=== PATIENT | male | born 1990 | race Caucasian/White ===

== ENCOUNTER 2019-11-13 16:46 | Inpatient (IN) | payer SELFPAY ==
[2019-11-13 16:47] VITALS: BMI 20.9
[2019-11-13 16:50] VITALS: BP 118/79; PULSE 74; RESP 16; TEMP 36.4; O2SAT 97
[2019-11-13] MEDS: LORazepam 2 mg/mL INJ 1 mL (17:11)
[2019-11-13] MEDS: ziprasidone 20 mg/mL SDV (17:16)
[2019-11-13 17:55] LABS: Basophils # 0.1 10^3/uL (0.0-0.1); Basophils % 0.5 %; Eosinophils # 0.2 10^3/uL (0.0-0.8); Eosinophils % 2.3 %; Hematocrit 43.7 % (42.0-52.0); Hemoglobin 15.2 g/dL (11.7-16.6); Lymphocytes # 1.4 10^3/uL (0.8-4.8); Lymphocytes % 15.5 %; Mean Corpuscular HGB Conc 34.8 g/dL (30.0-36.0); Mean Corpuscular Hemoglobin 31.5 pg (28.0-34.0); Mean Corpuscular Volume 90.5 fL (80-94); Mean Platelet Volume 8.9 fL (7.4-10.4); Monocytes # 0.8 10^3/uL (0.2-0.9); Monocytes % 8.7 %; Neutrophils # 6.67 10^3/uL (1.8-7.7); Neutrophils % 72.7 %; Nucleated Red Blood Cells % 0 %; Platelet Count 261 10^3/cmm (130-400); Red Blood Count 4.83 10^6/uL (4.1-5.3); Red Cell Distribution Width 11.8 % (12.1-15.1); White Blood Count 9.2 10^3/uL (4.0-10.0)
[2019-11-13 18:20] LABS: Alanine Aminotransferase 21 U/L (0-41); Albumin Level 4.8 g/dL (3.5-5.2); Alkaline Phosphatase 85 IU/L (40-130); Aspartate Amino Transferase 24 U/L (0-40); Blood Urea Nitrogen 13 mg/dL (6-20); Calcium 9.2 mg/dL (8.5-10.5); Carbon Dioxide 25 mmol/L (22-29); Chloride 102 mmol/L (98-107); Globulin 3.1 g/dL (1.3-4.6); Glomerular Filtration Rate 100.5 mL/min (90-130); Glucose 90 mg/dL (65-115); Osmolality Calculated 282 mOsm/kg (285-295); Sodium 138 mmol/L (136-145); Total Bilirubin 0.7 mg/dL (0.15-1.2); Total Protein 7.9 g/dL (6.6-8.7)
[2019-11-13 18:21] LABS: Acetaminophen < 5.0 ug/mL (10-30); Alcohol Level < 10 mg/dL (0-10); Salicylate < 0.3 mg/dL (3-10)
[2019-11-13 19:01] LABS: Add Urine Microscopic? NO
[2019-11-13 19:03] LABS: Bilirubin Urine Neg (NEGATIVE); Blood Urine Neg (Negative); Glucose Urine UA Norm (Normal); Ketones Urine 1+ (Negative); Leukocyte Esterase Urine Negative (Negative); Nitrate Urine Negative (Negative); Protein Urine Neg (Negative); Specific Gravity, Urine 1.025 (1.005-1.030); Urine Appearance Clear (CLEAR); Urine Color Dark Yellow (Yellow); Urobilinogen Urine 1 mg/dL (Negative); pH Urine 5 (5-7)
[2019-11-13 19:11] LABS: Amphetamines Screen Urine Positive (Negative); Barbiturates Screen Urine Negative (Negative); Benzodiazepines Screen Urine Negative (Negative); Cocaine Screen Urine Negative (Negative); Opiate Screen Urine Negative (Negative); PCP Screen Urine Negative (Negative); THC Screen Urine Positive (Negative)
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
[2019-11-13 20:27] VITALS: BP 124/74; PULSE 78; RESP 18; O2SAT 98
[2019-11-13 21:25] VITALS: BP 109/73; PULSE 68; RESP 18; TEMP 36.6; O2SAT 99
[2019-11-14 06:00] VITALS: RESP 18
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
[2019-11-14 14:00] VITALS: BP 112/70; PULSE 56; RESP 16; TEMP 36.4; O2SAT 99
[2019-11-14] MEDS: nicotine 2 mg Gum BUCCAL (15:13)
[2019-11-14 20:13] VITALS: BP 110/62; PULSE 55; RESP 14; TEMP 36.3; O2SAT 96
--- NOTE | 2019-11-15 02:14 | PC.NURSE ---
patient refused 2100 meds
[2019-11-15 06:00] VITALS: BP 105/65; PULSE 60; RESP 14; TEMP 36.7; O2SAT 98
[2019-11-15] MEDS: ARIPiprazole 10 mg Tablet PO (08:27)
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
[2019-11-15 14:00] VITALS: BP 101/81; PULSE 75; RESP 18; TEMP 36.6; O2SAT 98
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
[2019-11-15] MEDS: hyDROXYzine 25 mg Capsule 50 MG PO (20:33)
[2019-11-15] MEDS: trazodone 50 mg Tablet PO (20:34)
[2019-11-15] MEDS: nicotine 2 mg Gum BUCCAL (20:34)
[2019-11-15 21:17] VITALS: BP 120/73; PULSE 58; RESP 16; TEMP 36.6; O2SAT 97
[2019-11-16 06:00] VITALS: BP 114/65; PULSE 54; RESP 14; TEMP 36.8; O2SAT 98
[2019-11-16] MEDS: acetaminophen 325 mg Tablet 650 MG PO (06:20)
[2019-11-16] MEDS: nicotine 2 mg Gum BUCCAL (07:55)
[2019-11-16] MEDS: ARIPiprazole 30 mg Tablet 15 MG PO (10:19)
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
[2019-11-16 14:00] VITALS: BP 98/60; PULSE 71; RESP 18; TEMP 37.1; O2SAT 94
[2019-11-16 20:36] VITALS: BP 121/78; PULSE 60; RESP 18; TEMP 36.9; O2SAT 97
[2019-11-17 06:00] VITALS: BP 131/81; PULSE 51; RESP 19; TEMP 36.4; O2SAT 98
[2019-11-17] MEDS: ARIPiprazole 30 mg Tablet 15 MG PO (08:44)
--- NOTE | 2019-11-17 11:24 | P.DS_ITS ---
Diagnoses at Discharge Discharge Diagnosis (1) Acute psychosis: Status: Acute (2) Drug-induced psychotic disorder: Status: Acute Qualifiers: Complication of substance-induced condition: with delusions Qualified Code(s): F19.950 - Other psychoactive substance use, unspecified with psychoactive substance-induced psychotic disorder with delusions (3) Methamphetamine use: Status: Acute (4) Cannabis use disorder, moderate, in controlled environment, dependence: Status: Acute Reason for Visit Reason for Visit: PSYCH EVAL Brief History: History of Present Illness Chetan Rodriguez is a 29 year old male who presented to the emergency room after breaking into his ex-'s house reportedly to protect them from some cult. He was talking strangely about a them. And how they do this and they do that. Speaking disorganized referring to strange idioms that may know since her relation to the subject matter but reporting that he was fine. No violence or aggression. But clearly psychotic. He was admitted to the neuropsychiatric unit for definitive treatment of those issues. Unfortunately he has no believes that he has psychosis. He is unaware of his disorganization. He is on 96 hour hold and Focusing on how long he would be here. Finally he was able to discuss the risks benefits and alternatives of starting Abilify and he understood and agreed to proceed as is documented in his note. He was a fairly incapable historian but note from 2016 and a previous evaluation for psychiatric concerns is included below. Per last [facility] IP eval: History of Present Illness Date of Service: August 28, 2015 Reason for Consultation: suicide attempt by overdose. HPI: The patient was admitted to the ICU following a suicide attempt by overdose. He was agitated and was sedated and intubated on admission. He states that he took an unknown amount of Flexeril pills. He has been feeling very depressed and was started on an antidepressant recently, but stopped taking the medication about a week ago. States he has been having relational problems with his of 6 months. States they have been together for 13 years.The patient endorses depressed mood most of the time, anhedonia, reduced appetite, fatigue, trouble concentrating, insomnia, feelings of guilt, frequent thoughts of , psychomotor retardation. He also feels very anxious and states he believes he needs psych treatment. He is not hearing voices and seeing things. A detailed history is inconsistent with manic/hypomanic episodes. Review of Psychiatric Systems: Negative, except as above. Allergies: Coded Allergies: No Known Allergies (Unverified , 08/27/15) Active Meds: Current Hospital Medications: Medications (Trade) Dose Ordered Sig/Charli Route PRN Reason Start Time Stop Time Status Last Admin Dose Admin Ondansetron HCl (Zofran Inj) 4 mg Q6H PRN IV FOR NAUSEA AND VOMITING 08/27/15 14:00 Enoxaparin Sodium (Lovenox) 40 mg Q24H SUBQ 08/27/15 14:00 08/27/15 15:06 Acetaminophen (Tylenol Tab) 650 mg Q4H PRN PO FOR MILD PAIN OR INCREASE TEMP 08/28/15 00:15 08/28/15 00:20 Sodium Chloride (Saline Lock Flush) 2 ml PIID IV 08/28/15 14:00 Loratadine (Claritin) 10 mg DAILY PO 08/28/15 10:00 08/28/15 10:15 Fluticasone Propionate (Flonase Nasal Bandera) 2 spray BID NA 08/28/15 10:00 08/28/15 10:15 Home Meds: Antidepressant, not known. Past Medical History Past Medical/Social History: PAST PSYCHIATRIC HISTORY:Previous psychiatric admissions:No. Previous suicide attempts:No. SUBSTANCE ABUSE HISTORY: Smokes Cigarettes: No. Previously smoked some marijuana. Alcohol use:No. SOCIAL HISTORY: Employed: A at the [employer]. Is on disability:No. Education: High school. Marital status: . Has 3 children. DEVELOPMENTAL HISTORY: History of Physical, Emotional and Sexual abuse: No. LEGAL HISTORY: None. FAMILY PSYCHIATRIC HISTORY: None reported. PAST MEDICAL HISTORY: None. Hospital Course Hospital Course The patient presented to the emergency room after breaking into his ex-?s house and saying things that did not make sense. She called the police and he refused to give his name, date of and was uncooperative. He ultimately was taken into custody and placed on a 96-hour hold. He was admitted to the neuropsychiatric unit for definitive treatment of those issues. On the neuropsychiatric unit, he was continuing to have psychosis but was able to agree to initiate Abilify which was titrated to 15 mg qam. He tolerated this medication well and had positive response. During the hospitalization, the patient had routine laboratory studies which were within normal limits, except for a few outliers. Additionally, he had a general medical evaluation which was within normal limits and revealed no new acute processes. Discharge Summary At the time of discharge the patient denied all lethality, was absent psychosis, and mood and anxiety were well managed. The patient endorsed a plan to avoid all drugs of abuse and to follow-up with outpatient services, as recommended. He was evaluated and deemed to be absent credible lethality, and had achieved the maximum benefit from an inpatient hospitalization, and so he was discharged. Involuntary Hold Information 96 Hour Hold: 96 Hour Involuntary Admission: Yes 96 Hour Hold Ending Date: 11/18/19 96 Hour Hold Ending Time: 12:01 Mental Status Exam MSE Comments: This is a slender white male with adequate dress grooming and eye contact. No abnormal movements. Cooperative with exam in no acute distress. Speech was normal rate and volume. Mood described as good, affect less guarded. Thought process more organized. Thought content: Patient denied suicidal or homicidal ideation, there were no delusions reported and clear persecutory and paranoid and slightly hyperreligious delusions are resolving. He denied auditory or visual hallucinations. Attention and concentration appeared intact and memory was more but none were formally tested. He is alert and oriented times 3. Insight and judgment are improving, impulse control is impaired, but improving. Discharge Data Vitals: Last Vital Signs Temp 97.5 F L 11/17/19 06:00 Pulse 51 L 11/17/19 06:00 Resp 19 H 11/17/19 06:00 BP 131/81 11/17/19 06:00 Pulse Ox 98 11/17/19 06:00 Discharge Plan Discharge Patient Disposition: Home Condition: Stable Prescriptions: New trazodone 50 mg Tablet 50 mg PO BEDTIME PRN (Reason: Sleep) 30 Days Qty: 30 RF: 1 hydroxyzine pamoate 25 mg Capsule 50 mg PO Q6H PRN (Reason: Anxiety) 30 Days Qty: 180 RF: 1 aripiprazole 30 mg Tablet 15 mg PO DAILY 30 Days Qty: 15 RF: 1 Continued No Known Home Medications RF: 0 Discharge Orders: Discharge Order (Routine); Ordered 11/17/19 Ordered By: Bc Rider Referrals: [facility] Behavioral Health Care [Outside] - 1-3 days (To get outpatient mental health services, call [facility] or go to [facility] ([facility]) Thursday through [employer] any time from 7:30 a.m. -2:30 p.m. and request initial intake. You must do that as soon as you can so that you can get a follow-up appointment as soon as possible. ) Discharge Diet: Regular Discharge Activity: Resume usual activity Patient Instructions: Trazodone (By mouth), Hydroxyzine Pamoate (By mouth), Aripiprazole (By mouth), Methamphetamine Abuse (DC), Anxiety (DC) Discharge Date/Time: 11/17/19 11:20 Discharge Attestations NPU Time Spent in Discharge Care*: less than 30 min Specific Discharge Activities: Specific discharge activities: educating patient, discussing with continuous pillowcase cutter/social workers/dc planners, documenting/other paperwork and evaluating patient/reviewing data Time Spent in Smoking Cessation: Time spent discussing smoking cessation with patient: 3 to 10 minutes Coding Level of Care Code Acute Boiling Tub Operator for Mikeg Fwd Diagnoses Acute psychosis F23 Drug-induced psychotic disorder F19.950 Complication of substance-induced condition: with delusions Methamphetamine use F15.10 Cannabis use disorder, moderate, in controlled environment, dependence F12.20
[2019-11-17 11:32] VITALS: BP 131/81; PULSE 51; RESP 19; TEMP 36.4; O2SAT 98
[2019-11-17] MEDS: nicotine 2 mg Gum BUCCAL (11:52)
== END 2019-11-17 11:20 | disposition home or self-care (01) | DRG 885 ==
LOC: ER 17:10 → NP 20:34
PROVIDERS: Family Medicine; Admitting Provider Psychiatry & Neurology Psychiatry; Visit Provider Psychiatry & Neurology Psychiatry
DX: F23 Brief psychotic disorder (principal); F19.950 Other psychoactive substance use, unspecified with psychoactive substance-induced psychotic disorder with delusions; F15.90 Other stimulant use, unspecified, uncomplicated; F12.90 Cannabis use, unspecified, uncomplicated; Z91.5 Personal history of self-harm
CPT/HCPCS: 12345; 36415; 80053; 80306; 80307; 81003; 85025; 99284; J2060; J3486

== ENCOUNTER 2021-02-10 08:58 | Emergency (ER) | payer SELFPAY ==
--- NOTE | 2021-02-10 09:10 | XRR_ITS ---
PROCEDURE INFORMATION: Exam: XR Left Hand Exam date and time: 02/10/2021 9:10 AM Age: 30 years old Clinical indication: Injury or trauma; Other: Hit something; Blunt trauma (contusions or hematomas); Hand; Left; Additional info: Hand injury 5th digit TECHNIQUE: Imaging protocol: XR Left hand. Views: 3 or more views. Total images: 3 COMPARISON: No relevant prior studies available. FINDINGS: Bones/joints: Boxer's fracture: Fracture of the 5th metacarpal with volar angulation of the distal fragment. No additional fracture, subluxation, or dislocation detected. Soft tissues: Normal. XR/XR hand LT min 3V* [id number] IMPRESSION: Boxer's fracture: Fracture of the 5th metacarpal with volar angulation of the distal fragment. Radiation Dose CTDIVOL = (mGy): DLP = (mGy-cm)
[2021-02-10 09:13] VITALS: BMI 22.3
[2021-02-10 09:17] VITALS: BP 137/62; PULSE 67; RESP 18; O2SAT 100
--- NOTE | 2021-02-10 09:17 | ED_ITS ---
HPI - Extremity Problem General: Chief complaint: Extremity Injury, Upper Stated complaint: L HAND INJURY Time Seen by Provider: 02/10/21 09:16 History of Present Illness: HPI Narrative: Patient is a 30-year-old male comes to the ED with left hand injury. Patient says 3 days ago he was working on a vehicle and the car and the vehicle and its tire rolled onto his left hand. He is having swelling to left hand. Says most of his pain is in his hand around th e fourth and fifth knuckle. He can move his fourth and fifth fingers but it does cause some discomfort and pain. Associated symptoms: Deny chest pain, fever(s) or rash Review of Systems Const: Denies: fever(s), chills or fatigue Eyes: Denies: change in vision or eye discomfort ENMT: Denies: throat pain, odynophagia, nasal discharge or nasal congestion Card: Denies: chest pain, palpitations, edema, swelling of feet/ankles, dyspnea on exertion or orthopnea Resp: Denies: dyspnea, productive cough or non-productive cough GI: Denies: abdominal pain, nausea, vomiting, diarrhea, constipation or hematochezia : Denies: flank pain, difficulty urinating, dysuria or hematuria Musc: Reports: extremity pain (left hand); Denies: neck pain, back pain or extremity swelling Skin/Breast: Denies: rash or new lesions Neuro: Denies: headache(s), numbness in extremities or weakness in extremities Physical Exam Const: COMMON NORMALS: no acute distress and patient oriented x3 GENERAL APPEARANCE: cooperative and comfortable HENMT: COMMON NORMALS: normocephalic HEAD & SCALP: normocephalic MOUTH: Normal oral and palatal mucosa present THROAT: posterior oropharynx normal and uvula midline Neck/C-Spine: COMMON NORMALS: supple GENERAL: Yes normal visual inspection Resp: COMMON NORMALS: normal respiratory effort, No retractions, No use of accessory muscles and clear to auscultation bilaterally AUSCULTATION: clear to auscultation bilaterally Cardio: COMMON NORMALS: regular rate, regular rhythm, S1 normal heart sound present, S2 normal heart sound present, No gallops present (Cardio), No clicks present (Cardio), No murmurs present (Cardio) and Peripheral pulses 2+ throughout RATE: regular rate RHYTHM: regular rhythm HEART SOUNDS: S1 normal heart sound present and S2 normal heart sound present PERIPHERAL PULSES: Peripheral pulses 2+ throughout GI: COMMON NORMALS: Normal to inspection, nondistended, normoactive bowel sounds present, Soft to palpation, non-tender and no masses PALPATION: Yes Soft to palpation : COMMON NORMALS: Yes no CVA tenderness BLADDER/KIDNEY EXAM: Yes no CVA tenderness Back/Pelvis: COMMON NORMALS: no CVA tenderness Extremity: LEFT UPPER EXTREMITY: Yes hand & digits Left hand and digits: Yes inspection (Swelling and ecchymosis seen on dorsal aspect), Yes palpation (Tenderness over fourth and fifth metacarpal), Yes ROM (Limited range of motion in fourth and fifth digit due to pain) and Yes neurovascular exam (Intact) Neuro: COMMON NORMALS: patient oriented x3 and moves all extremities Skin: GENERAL SKIN EXAM: dry skin Course Vital Signs: Vital signs: Vital Signs Pulse Rate 67 02/10/21 09:17 Respiratory Rate 18 02/10/21 09:17 Blood Pressure 137/62 02/10/21 09:17 Pulse Oximetry 100 02/10/21 09:17 MDM - Extremity (Nontraumatic) MDM Narrative: Medical decision making narrative: Patient is a 30-year-old male comes to the ED with left hand injury. Patient says 3 days ago he was working on his vehicle and the car tire rolled onto his left hand. He is having pain now around his fourth and fifth digit of hand. Vital stable. Exam of left hand shows some tenderness and swelling over fifth metacarpal. X-ray of left hand showed a boxer fracture of fifth meta carpal with volar angulation of the distal fragment. Patient was put in a ulnar gutter splint and I placed an order with case management for patient be referred to orthopedic for follow-up. He was discharged home with a prescription for hydrocodone for pain and instructed on limiting activity with left arm and keeping splint dry. He was told case assembler will call next several days set up an appointment with orthopedic doctor. Patient understood and agreed with plan. Imaging Data^: Xray Ortho: Attestation: I personally reviewed and interpreted this imaging study as follows: Radiologist's impression: [address] [place] [address] XRay Report Signed Patient: Chetan Rodriguez [id number] 1990 [id number] Age/Sex: 30 / M ADM Date: 02/10/21 Loc: ER Room/Bed: Attending Dr: Ordering Provider/Ordering MD: Israel Colón Date of Service: 02/10/21 Procedure(s): XR hand LT min 3V* [id number] Accession Number(s): [id number] Report Number: [id number] PROCEDURE INFORMATION: Exam: XR Left Hand Exam date and time: 02/10/2021 9:10 AM Age: 30 years old Clinical indication: Injury or trauma; Other: Hit something; Blunt trauma (contusions or hematomas); Hand; Left; Additional info: Hand injury 5th digit TECHNIQUE: Imaging protocol: XR Left hand. Views: 3 or more views. Total images: 3 COMPARISON: No relevant prior studies available. FINDINGS: Bones/joints: Boxer's fracture: Fracture of the 5th metacarpal with volar angulation of the distal fragment. No additional fracture, subluxation, or dislocation detected. Soft tissues: Normal. XR/XR hand LT min 3V* [id number] IMPRESSION: Boxer's fracture: Fracture of the 5th metacarpal with volar angulation of the distal fragment. Radiation Dose CTDIVOL = (mGy): DLP = (mGy-cm) Dictated By: Kj Rider MD Signed By: Kj Rider MD Signed Date/Time: 02/10/21939 DD/ 9 Discharge Plan Discharge Patient Disposition: Home Clinical Impression: Closed fracture of 5th metacarpal Qualifiers: Encounter type: initial encounter Metacarpal location: base Fracture alignment: nondisplaced Laterality: left Qualified Code(s): S62.347A - Nondisplaced fracture of base of fifth metacarpal bone, left hand, initial encounter for closed fracture Condition: Stable Prescriptions: New ibuprofen 800 mg tablet 800 mg PO Q8H PRN (Reason: pain) Qty: 20 RF: 0 No Action No Known Home Medications RF: 0 trazodone 50 mg Tablet 50 mg PO BEDTIME PRN (Reason: Sleep) 30 Days Qty: 30 RF: 1 hydroxyzine pamoate 25 mg Capsule 50 mg PO Q6H PRN (Reason: Anxiety) 30 Days Qty: 180 RF: 1 aripiprazole 30 mg Tablet 15 mg PO DAILY 30 Days Qty: 15 RF: 1 Discharge Orders: Discharge ED (Routine); Ordered 02/10/21 Ordered By: Israel Colón Discharge Diet: Regular Discharge Activity: Limit activity as instructed Patient Instructions: Boxer Fracture (ED), Opioid Safety Activity Restrictions/Additional Instructions: Follow-up with medical provider as directed. Case management will be contacting you in the next several days to set up an appoint with orthopedic doctor for further evaluation and management of fracture. Keep splint on and dry and limit activity with left hand. Take medications as prescribed. Return to the ER or your medical provider if condition worsens. Please read and understand discharge instructions. Thank you for choosing [facility] for your healthcare needs today. Please realize this is an emergency room and that we are providing you with a medical screening exam and this may not be complete and all inclusive of all the testing and or work up that you may need to determine your ailment or severity of your illness. It is very important that you follow up as instructed or that you return to the Emergency Department should you have concerns or if your condition changes or worsens in any way. Stand Alone Forms: Work/School Release Coding Level of Care Code ED Factory Superintendent for Nicolle Fwanjali Exam Comprehensive
[2021-02-10] MEDS: HYDROcodone-acetaminophen 7.5-325 mg Tablet 1 TAB PO (09:28)
--- NOTE | 2021-02-11 10:00 | DCPLANNER ---
certified energy manager had message to schedule a follow up appointment for patient with ortho. certified energy manager called the ortho clinic, spoke with Olivia, gave clinic patients information. certified energy manager was told that patients information would be printed and reviewed. Clinic will call patient with appointment information.
--- NOTE | 2021-02-13 12:28 | DCPLANNER ---
Patient had a follow up appointment scheduled for 02.12.[address] Ulloa at [facility] - patient did attend appointment.
== END 2021-02-10 10:20 | disposition home or self-care (01) ==
PROVIDERS: Emergency Provider Physician Assistant
DX: S62.347A Nondisplaced fracture of base of fifth metacarpal bone, left hand, initial encounter for closed fracture (principal); W20.8XXA Other cause of strike by thrown, projected or falling object, initial encounter
CPT/HCPCS: 29125; 73130; 99283

== ENCOUNTER 2021-02-12 06:00 | Outpatient (CLI) | payer SELFPAY | END 2021-02-12 06:01 | disposition home or self-care (01) | LOC: SPT 02-13 17:00 | PROVIDERS: Referring Provider Orthopaedic Surgery; Visit Provider Orthopaedic Surgery | DX: Z46.89 Encounter for fitting and adjustment of other specified devices (principal); S62.347A Nondisplaced fracture of base of fifth metacarpal bone, left hand, initial encounter for closed fracture; X58.XXXA Exposure to other specified factors, initial encounter | CPT/HCPCS: 97760; L3984 ==

== ENCOUNTER 2022-05-25 09:12 | Emergency (ER) | payer SELFPAY ==
[2022-05-25 09:15] VITALS: BP 133/81; PULSE 93; RESP 16; TEMP 36.6; O2SAT 97; BMI 23.7
--- NOTE | 2022-05-25 09:21 | XRR_ITS ---
PROCEDURE INFORMATION: Exam: XR Right Calcaneus Exam date and time: 05/25/2022 9:27 AM Age: 31 years old Clinical indication: Injury or trauma; Fall; Blunt trauma; Heel; Right; Additional info: Heel pain, fell from ladder approx 12 ft, landed on right heel on TECHNIQUE: Imaging protocol: Radiologic exam of the right calcaneus. Views: 2 or more views. COMPARISON: No relevant prior studies available. FINDINGS: Bones/joints: Normal. Soft tissues: Normal. XR/XR calcaneus RT min 2V 16084 IMPRESSION: No acute findings.
--- NOTE | 2022-05-25 09:22 | ED_ITS ---
HPI - Fall General: Chief Complaint: Extremity Injury, Lower Stated Complaint: right foot pain Time Seen by Provider: 05/25/22 09:15 Source: patient Mode of arrival: ambulatory Limitations: no limitations History of Present Illness: Patient presents to the emergency department today for evaluation treatment of right heel pain. He reports that 3 days ago while at work he was up approximately 12 foot on a ladder. He states the ladder started to come backwards and he jumped off. He states he landed on his right heel onto the ground-dirt and grass. He states since that time he has had right heel pain and while he has still continue to go to work, he is limping and tiptoeing on his right foot to walk. Patient denies any knee or hip pain. He denies any back pain. Patient denies falling backwards or hitting his head. Associated symptoms-after fall: Denies neck pain Review of Systems General: Reports: 10 or more systems reviewed and unremarkable except in HPI and below Musc: Reports: joint pain (right heel) and limited range of motion; Denies: neck pain or back pain [facility] ED PFSH: Social History Smoking and tobacco status: current every day smoker (1/2 pack per day ) Physical Exam Const: COMMON NORMALS: no acute distress, patient oriented x3 and alert HENMT: COMMON NORMALS: normocephalic, atraumatic and hearing grossly normal bilaterally HEAD & SCALP: normocephalic and atraumatic Eye: COMMON NORMALS: Equal, round and reactive pupils present, EOMs intact bilaterally and conjunctivae normal CONJUNCTIVA: Yes conjunctivae normal PUPIL: Yes Equal, round and reactive pupils present Neck/C-Spine: COMMON NORMALS: full ROM and no JVD Lymph: LYMPHATIC: no lymphadenopathy noted Resp: COMMON NORMALS: normal respiratory effort, No retractions and No use of accessory muscles Cardio: COMMON NORMALS: no JVD and regular rate RATE: regular rate Extremity: NARRATIVE EXTREMITY EXAM: Patient has tenderness on palpation to the right proximal heel on the plantar surface with through and through pain felt on palpation just superior to the heel on both the medial and lateral side. Patient is nontender palpation to the Achilles attachment. Patient was nontender on the plantar fascia of the right arch. Patient nontender to the medial lateral malleolus. Patient had no signs of swelling, abrasions, erythema, or bruising in the right heel. Neuro: COMMON NORMALS: patient oriented x3 SENSORIUM/ORIENTATION: Yes alert Psych: COMMON NORMALS: mental status grossly normal, Normal thought process present, cooperative and normal affect THOUGHT PROCESS: Normal thought process present Skin: COMMON NORMALS: no rashes or lesions noted and turgor normal GENERAL SKIN EXAM: no rashes or lesions noted and turgor normal Course Vital Signs: Vital signs: Vital Signs Temperature 97.9 F 05/25/22 09:15 Pulse Rate 93 05/25/22 09:15 Respiratory Rate 16 05/25/22 09:15 Blood Pressure 133/81 05/25/22 09:15 Pulse Oximetry 97 05/25/22 09:15 Oxygen Delivery Me thod 05/25/22 09:15 MDM - Fall Medical Decision Making Patient presented to the emergency department with continued right heel pain after a significant fall approximately 4 days ago. Patient fell from a height of approximately 12 feet and states he landed on his right heel on the ground. He has been walking on the ball of his foot due to pain with any type of weightb earing during ambulation of the right heel. Patient's x-ray was otherwise unremarkable for obvious fracture. However, as he is several days past the injury and is still having issues, I did recommend to follow-up with orthopedics. Explained to him that if he is conservatively managed until he is seen by orthopedics and still continues to have pain or difficulties he may require further imaging such as a CT scan. We discussed nonweightbearing with a postop shoe for anatomic alignment. Patient reports she has crutches at home so he was fitted for a postop shoe here in the ER. Discussed at home RICE therapy to be used until he is followed up with by orthopedics. Referral to orthopedics initiated on his behalf today. DDx: Calcaneal fracture, Achilles avulsion, plantar fasciitis, calcaneal contusion Lab Data Radiology Impressions Calcaneus X-Ray 05/25/22 09:21 IMPRESSION: No acute findings. Discharge Plan Discharge Patient Disposition: Home Clinical Impression: Heel pain Condition: Stable Prescriptions: No Action (DME) fast form ulnar gutter See Rx Instructions .Route .MEDSUPPLY Qty: 1 0RF Rx Instructions: As directed trazodone 50 mg Tablet 50 mg PO BEDTIME PRN (Reason: Sleep) 30 Days Qty: 30 1RF hydroxyzine pamoate 25 mg Capsule 50 mg PO Q6H PRN (Reason: Anxiety) 30 Days Qty: 180 1RF aripiprazole 30 mg Tablet 15 mg PO DAILY 30 Days Qty: 15 1RF ibuprofen 800 mg tablet 800 mg PO Q8H PRN (Reason: pain) Qty: 20 0RF Discharge Orders: Discharge ED (Routine); Ordered 05/25/22 Ordered By: Yvette Schmidt Discharge Diet: Usual diet Discharge Activity: Limit activity as instructed and Use walker/crutches as i nstructed Activity Restrictions/Additional Instructions: Your x-ray today was read negative for any signs of an acute fracture however, given that you are several days from her injury and are still having difficulty with any type of weightbearing or ambulation on your heel, I have sent a referral over to orthopedics/podiatry for follow-up. Until then, I want you to remain nonweightbearing-use your crutches and wear postop shoe to help with proper alignment of your foot. Try and keep your foot up and elevated is much as possible. Apply an ice pack to your heel for 15 to 20 minutes, multiple times throughout the day and use Tylenol or ibuprofen as needed for pain. You may require further imaging if you continue to have pain in your heel with this type of conservative treatment and the orthopedist can order these images for you at your follow-up appointment. I have provided you a note for work to give you a couple of days off to be available for your orthopedic follow-up. Stand Alone Forms: Work/School Release Coding Level of Care Code ED Weather Stripper for Nicolle Kitchen
--- NOTE | 2022-05-26 12:48 | DCPLANNER ---
Addendum entered by Lanie Huntley 05/27/22 14:29: Patient had a followup appointment scheduled for 05.27.[address] Jonas at [facility] - patient did attend appointment. Original Note: workforce investment act career manager had message to schedule a follow up appointment for patient with podiatry. workforce investment act career manager sent patients information to the front office staff at podiatry. Patients information will be printed and reviewed. Clinic will call patient with appointment information.
== END 2022-05-25 10:19 | disposition home or self-care (01) ==
PROVIDERS: Emergency Provider Physician Assistant
DX: M79.671 Pain in right foot (principal); F17.210 Nicotine dependence, cigarettes, uncomplicated
CPT/HCPCS: 73650; 99283

== ENCOUNTER → 2022-05-27 14:31 | Outpatient (BNVA) | payer SELFPAY | PROVIDERS: Visit Provider Podiatrist Foot & Ankle Surgery | DX: S90.31XA Contusion of right foot, initial encounter (principal); W11.XXXA Fall on and from ladder, initial encounter | CPT/HCPCS: 73650 ==

== ENCOUNTER 2022-05-27 15:02 | Outpatient (CLI) | payer SELFPAY | END 2022-05-27 15:03 | disposition home or self-care (01) | LOC: SPT 15:02 | PROVIDERS: Visit Provider Podiatrist Foot & Ankle Surgery | DX: Z46.89 Encounter for fitting and adjustment of other specified devices (principal); S90.31XD Contusion of right foot, subsequent encounter; X58.XXXD Exposure to other specified factors, subsequent encounter | CPT/HCPCS: L4361 ==

== ENCOUNTER 2023-12-30 17:49 | Inpatient (IN) | payer SELFPAY ==
[2023-12-30 17:55] VITALS: BP 137/79; PULSE 81; RESP 16; TEMP 36.6; O2SAT 97
--- NOTE | 2023-12-30 18:07 | XRR_ITS ---
PROCEDURE INFORMATION: Exam: XR Abdomen Exam date and time: 12/30/2023 7:12 PM Age: 33 years old Clinical indication: Abdominal pain TECHNIQUE: Imaging protocol: Radiologic exam of the abdomen. Views: 2 Views. Upright and supine views. COMPARISON: No relevant prior studies available. FINDINGS: Lungs: No focal consolidation. Gastrointestinal tract: Nonobstructive bowel-gas pattern. Intraperitoneal space: Normal. No free air. Bones/joints: Unremarkable for age. Soft tissues: There is a radiopaque foreign body measuring 17 x 18 mm projecting through the medial aspect of the left upper quadrant. It is unclear if this is external to the patient and clinical correlation is recommended. XR/XR acute abdomen series [id number] IMPRESSION: 1. There is a radiopaque foreign body measuring 17 x 18 mm projecting through the medial aspect of the left upper quadrant. It is unclear if this is external to the patient and clinical correlation is recommended. 2. No focal consolidation. 3. Nonobstructive bowel-gas pattern.
--- NOTE | 2023-12-30 18:52 | ED.C_ITS ---
HPI - Psych 2 General: Chief Complaint: Psychiatric Symptoms Stated Complaint: abdominal pain, throat pain Time Seen by Provider: 12/30/23 18:03 History of Present Illness: 33-year-old male with a history of depre ssion, alcohol abuse, methamphetamine abuse and a history of attempted suicide by overdose with admission to the ICU who presents to the emergency room with multiple complaints. Initially he tells nursing that he is highly suicidal. When I talk to him he says he is not exactly suicidal but he could be and he is very prone to being as such. He says he has been having some abdominal discomfort. He has been having strange bowel movements. Some left-sided abdominal pain. He does admit to drinking quite a bit of alcohol. About 20 to 30 minutes into his stay he becomes agitated and starts stating that you are wasting my time and he wants to go home. When I confront him about what he said he denies saying it at all. Related Data Previous Rx's Medication Instructions Recorded aripiprazole 30 mg tablet 15 mg (1/2 x 30 mg) PO DAILY 30 11/17/19 days #15 tabs hydroxyzine pamoate 25 mg capsule 50 mg (2 x 25 mg) PO Q6H PRN 11/17/19 Anxiety 30 days #180 caps trazodone 50 mg tablet 50 mg PO BEDTIME PRN Sleep 30 days 11/17/19 #30 tabs ibuprofen 800 mg tablet 800 mg PO Q8H PRN pain #20 tabs 02/10/21 fast form ulnar gutter #1 ea 02/12/21 cam boot to right #1 ea 05/27/22 Allergies Allergy/AdvReac Type Severity Reaction Status Date / Time No Known Allergies Allergy Verified 12/30/23 18:02 Review of Systems 2 General: Reports: 10 or more systems reviewed and unremarkable except in HPI and below PFSH ED 2 PFSH: Social History Smoking and tobacco/nicotine status: current every day tobacco/nicotine user (1/2 pack per day ) Physical Exam 2 Narrative: EXAM NARRATIVE: General: Alert, no acute distress. Skin: Warm, dry. Head: Normocephalic, atraumatic. Neck: Supple, trachea midline. Eye: Extraocular movements are intact. Ears, nose, mouth and throat: mucosa moist. Cardiovascular: Regular, Normal peripheral perfusion. Respiratory: Lungs are clear to auscultation, respirations are non-labored, breath sounds are equal, Symmetrical chest wall expansion. Gastrointestinal: Soft, Nontender, Non distended Musculoskeletal: Normal ROM, no deformity. Neurological: Alert and oriented, No focal neurological deficit observed. Psychiatric: Patient has an odd affect and at times becomes very agitated. Initially endorsed suicidal ideation, then denies having said it. Course 2 Vital Signs: Vital signs: Vital Signs Temperature 97.9 F 12/30/23 17:55 Pulse Rate 81 12/30/23 17:55 Respiratory Rate 16 12/30/23 17:55 Blood Pressure 137/79 12/30/23 17:55 Pulse Oximetry 97 12/30/23 17:55 Oxygen Delivery Me thod Room Air 12/30/23 17:55 MDM - Psych Medical Decision Making Differential diagnosis: Patient with reported depression and suicidal ideation. concerns for infection, alcohol intoxication, cardiac issues or other medical problems prior to psychiatric admission. Workup: labwork, ekg ordered to evaluate the pathologies and to clear the patient medically prior to psychiatric admission Acute abdominal series: chest x-ray: No acute process. No obvious infiltrates. No pneumothorax. No cardiomegaly. This was reviewed and interpreted by myself the emergency room physician Abdomen x-ray: Nonspecific bowel gas pattern. No evidence of free air or obstruction. This was reviewed and interpreted by myself the emergency room physician. Lab Review: Laboratory results were reviewed and interpreted by myself the emergency room physician. Lab review: - Medically cleared. - EKG shows no ischemic changes. - Blood alcohol level is 184, -Tylenol and salicylate levels are negative. - Drug screen is positive for marijuana - No signs of infection, urinalysis clear and white count is not elevated - No anemia. - BUN and creatinine are within normal limits. Consultation: I spoke with Dr. Frost who is on-call for psychiatry. He reviewed internal psychiatry records and the patient has had history of methamphetamine abuse, suicidal attempts in the past with an ICU admission. Given the patient's erratic behavior he recommends a 96-hour hold and admission. Assessment and plan: Suicidal ideation Alcohol intoxication Alcohol abuse Abdominal pain ?96-hour hold was placed on the patient. ? IM Dianna and Tone per psychiatry. -Admission to neuropsychiatric unit for continued evaluation and treatment. - All lab work was reviewed and interpreted personally by myself, the ER physician - Evaluation and treatment of this problem were appropriate in the emergency setting Lab Data 12/30/23 18:50 12/30/23 18:50 Laboratory Results WBC 8.59 10^3/uL (3.29-11.43) 12/30/23 18:50 RBC 4.29 10^6/uL (3.85-5.65) 12/30/23 18:50 Hgb 14.50 g/dL (11.27-16.99) 12/30/23 18:50 Hct 40.2 % (37-53) 12/30/23 18:50 MCV 93.7 fl (82-101) 12/30/23 18:50 MCH 33.8 pg (27-33) H 12/30/23 18:50 MCHC 36.1 g/dL (30-55) 12/30/23 18:50 RDW 11.9 % (12.1-15.1) L 12/30/23 18:50 Plt Count 246 10^3/cmm (157-399) 12/30/23 18:50 MPV 8.5 fL (7.4-10.4) 12/30/23 18:50 Neut % (Auto) 60.2 % 12/30/23 18:50 Lymph % (Auto) 24.0 % 12/30/23 18:50 Christian % (Auto) 12.6 % 12/30/23 18:50 Eos % (Auto) 2.0 % 12/30/23 18:50 Baso % (Auto) 0.7 % 12/30/23 18:50 Neut # (Auto) 5.18 10^3/uL (1.8-7.7) 12/30/23 18:50 Lymph # (Auto) 2.1 10^3/uL (0.8-4.8) 12/30/23 18:50 Christian # (Auto) 1.1 10^3/uL (0.2-0.9) H 12/30/23 18:50 Eos # (Auto) 0.2 10^3/uL (0.0-0.8) 12/30/23 18:50 Baso # (Auto) 0.1 10^3/uL (0.0-0.1) 12/30/23 18:50 Nucleated RBC % (auto) 0 % 12/30/23 18:50 Nucleated RBCs # 0.0 /100WBC 12/30/23 18:50 Sodium 141 mmol/L (136-145) 12/30/23 18:50 Potassium 3.6 mmol/L (3.5-5.1) 12/30/23 18:50 Chloride 105 mmol/L (98-107) 12/30/23 18:50 Carbon Dioxide 23 mmol/L (22-29) 12/30/23 18:50 Anion Gap 16.6 (5-19) 12/30/23 18:50 BUN 7 mg/dL (6-20) 12/30/23 18:50 Creatinine 0.9 mg/dL (0.7-1.2) 12/30/23 18:50 GFR Calculation 97.8 mL/min (90-130) 12/30/23 18:50 Glucose 100 mg/dL (65-115) 12/30/23 18:50 Calculated Osmolality 290 mOsm/kg (285-295) 12/30/23 18:50 Calcium 8.8 mg/dL (8.5-10.5) 12/30/23 18:50 Total Bilirubin 0.4 mg/dL (0.15-1.2) 12/30/23 18:50 AST 127 U/L (0-40) H 12/30/23 18:50 ALT 219 U/L (0-41) H 12/30/23 18:50 Alkaline Phosphatase 156 U/L (40-130) H 12/30/23 18:50 Total Protein 7.6 g/dL (6.6-8.7) 12/30/23 18:50 Albumin 4.5 g/dL (3.5-5.2) 12/30/23 18:50 Globulin 3.1 g/dL (1.3-4.6) 12/30/23 18:50 Lipase 48 U/L (13-60) 12/30/23 18:50 TSH 2.43 uIU/mL (0.27-4.20) 12/30/23 18:50 Salicylates < 0.3 mg/dL (3-10) L 12/30/23 18:50 Acetaminophen < 5.0 ug/mL (10-30) L 12/30/23 18:50 Ethyl Alcohol 184 mg/dL (0-10) H 12/30/23 18:50 All radiology interpretation(s) finalized by discharge Discharge Plan Discharge Patient Disposition: Admitted As Inpatient Admit Provider: Tavo Frost Clinical Impression: Depression, Suicidal ideation, Alcohol intoxication Condition: Stable Coding Level of Care Code ED Grinding Machine Operator Portable for Nicolle Kitchen
--- NOTE | 2023-12-30 18:59 | PC.NURSE ---
96 hour hold rights read and reviewed with patient. Patient stated that He is not staying here, he did not tell the triage nurse that he was suicidal he just had abdominal pain. Patient does not want to stay here he has to work tomorrow. This nurse instructed patient that is on a hold and will be admitted to our NPU unit and can speak with the psychiatrist about his concerns. Copy of rights given to patient.
[2023-12-30 19:08] LABS: Basophils # 0.1 10^3/uL (0.0-0.1); Basophils % 0.7 %; Eosinophils # 0.2 10^3/uL (0.0-0.8); Hematocrit 40.2 % (37-53); Lymphocytes # 2.1 10^3/uL (0.8-4.8); Mean Corpuscular HGB Conc 36.1 g/dL (30-55); Mean Corpuscular Hemoglobin 33.8 pg (27-33); Mean Corpuscular Volume 93.7 fl (82-101); Mean Platelet Volume 8.5 fL (7.4-10.4); Monocytes # 1.1 10^3/uL (0.2-0.9); Monocytes % 12.6 %; Neutrophils # 5.18 10^3/uL (1.8-7.7); Neutrophils % 60.2 %; Nucleated Red Blood Cells % 0 %; Platelet Count 246 10^3/cmm (157-399); Red Blood Count 4.29 10^6/uL (3.85-5.65); Red Cell Distribution Width 11.9 % (12.1-15.1); White Blood Count 8.59 10^3/uL (3.29-11.43)
[2023-12-30 19:25] LABS: Bilirubin Urine Negative (Negative); Blood Urine Negative (Negative); Glucose Urine UA Negative (Normal); Ketones Urine Negative (Negative); Leukocyte Esterase Urine Negative (Negative); Nitrate Urine Negative (Negative); Protein Urine Negative (Negative); Specific Gravity, Urine 1.002 (1.005-1.030); Urine Appearance Clear (CLEAR); Urine Color Yellow (Yellow); Urobilinogen Urine 0.2 mg/dL (Negative); pH Urine 6.5 (5-7)
[2023-12-30 19:29] LABS: Acetaminophen < 5.0 ug/mL (10-30); Alanine Aminotransferase 219 U/L (0-41); Albumin Level 4.5 g/dL (3.5-5.2); Alcohol Level 184 mg/dL (0-10); Alkaline Phosphatase 156 U/L (40-130); Anion Gap 16.6 (5-19); Aspartate Amino Transferase 127 U/L (0-40); Blood Urea Nitrogen 7 mg/dL (6-20); Calcium 8.8 mg/dL (8.5-10.5); Carbon Dioxide 23 mmol/L (22-29); Chloride 105 mmol/L (98-107); Creatinine Clr Calc Pharmacy 126.1027; Globulin 3.1 g/dL (1.3-4.6); Glomerular Filtration Rate 97.8 mL/min (90-130); Glucose 100 mg/dL (65-115); Lipase 48 U/L (13-60); Osmolality Calculated 290 mOsm/kg (285-295); Potassium 3.6 mmol/L (3.5-5.1); Salicylate < 0.3 mg/dL (3-10); Sodium 141 mmol/L (136-145); Thyroid Stimulating Hormone 2.43 uIU/mL (0.27-4.20); Total Bilirubin 0.4 mg/dL (0.15-1.2); Total Protein 7.6 g/dL (6.6-8.7)
[2023-12-30 19:32] LABS: Amphetamines Screen Urine Negative (Negative); Barbiturates Screen Urine Negative (Negative); Benzodiazepines Screen Urine Negative (Negative); Cocaine Screen Urine Negative (Negative); Opiate Screen Urine Negative (Negative); PCP Screen Urine Negative (Negative); THC Screen Urine Positive (Negative)
--- NOTE | 2023-12-30 19:32 | PC.NURSE ---
PTs parents are here asking about the pt. This nurse asked the pt if it was ok if I spoke with them concerning his care. Pt gave permission for us to speak with them. The pt requested that his belongings be given to his parents. This nurse gave the pts bag if belongings to his mom.
--- NOTE | 2023-12-30 19:33 | PC.NURSE ---
PT WALKED OUT OF ROOM, WHEN HE WAS INSTRUCTED TO GO BACK INTO ROOM BY PSA, HE SAID SHUT UP BITCH .
--- NOTE | 2023-12-30 19:34 | PC.NURSE ---
RN into room to give patient mother's phone number as he requested. pt then proceeded to state that there is no reason for him to be here and that the stupid bald bitch in triage lied about me being suicidal. I said that I was suicidal a long time ago and now the doctor is forcing me to stay here. RN instructed pt that being aggressive and uncooperative with staff is not okay. pt crumbled up sticky note with mother's phone number and threw it towards this RN.
[2023-12-30 19:51] LABS: Add Urine Culture? No
[2023-12-30 21:21] VITALS: BP 133/97; PULSE 70; RESP 18; TEMP 36.4; O2SAT 97
[2023-12-30] MEDS: hyDROXYzine 25 mg Capsule 50 MG PO (21:48)
[2023-12-30] MEDS: trazodone 50 mg Tablet PO (21:48)
[2023-12-31] VITALS: BP 122/66; PULSE 58; RESP 16; O2SAT 98
--- NOTE | 2023-12-31 00:39 | PC.NURSE ---
Patient admission Patient was agitated on arrival to the unit. Not towards NPU staff. He was frustrated because he stated he was not suicidal and just misunderstood a question that was asked of him in ED. The patients words were slurred and you could smell alcohol from his breath. Security remained present as this nurse and Narda VINCENT were able to redirect the patients frustration and anxiety. Offered medication for anxiety but patient declined at the time of admit but did take medication for anxiety later, see MAR. Patient remained calm and eventually went to bed to rest.
[2023-12-31 04:00] VITALS: BP 119/82; PULSE 65; RESP 16; O2SAT 100
[2023-12-31 08:00] VITALS: BP 128/82; PULSE 65; RESP 16; TEMP 36.4; O2SAT 99
--- NOTE | 2023-12-31 08:59 | PC.NURSE ---
RESTING IN BED. DENIES ANY ALCOHOL WITHDRAWAL SYMPTOMS AT THIS TIME. DENIES PAIN. DENIES SI/HI AND AVH AT THIS TIME. RATES ANXIETY AND DEPRESSION 10/06. REPORTS HE SLEPT OKAY PT STATES GOAL IS TO GET OUT OF HERE. THE TRIAGE NURSE WAS CONFUSING ME WITH ALL HER QUESTIONS AND I'M NOT SUICIDAL. PT WAS EDUCATED THAT HE WOULD SEE CASE MANAGEMENT AND DR. GARCIA TODAY. ALL QUESTIONS ANSWERED AND SUPPORT WAS VOICED.
[2023-12-31] MEDS: multivitamin therapeutic Tablet 1 TAB PO (09:25)
[2023-12-31] MEDS: thiamine 100 mg Tablet PO (09:25)
[2023-12-31] MEDS: ibuprofen 600 mg Tablet PO (09:25)
[2023-12-31] MEDS: folic acid 1 mg Tablet PO (09:25)
[2023-12-31 12:00] VITALS: BP 144/97; PULSE 61; RESP 16; O2SAT 100
--- NOTE | 2023-12-31 12:00 | P.NPUHP_ITS ---
Providers/Chief Complaint 2 Admitting Physician: Tavo Frost MD Chief Complaint: abdominal pain, throat pain HPI NPU History of Present Illness Chetan Rodriguez is a 33 year old male who presented to the emergency department on 12/30/2023 with complaints of having difficulties with abdominal discomfort. Patient had reported having abdominal discomfort and particularly left-sided abdominal pain. He had became frustrated at not receiving his treatment in a timely fashion and then stated that he wished to go home. The patient had made statements stating that he may be suicidal and was placed on an involuntary hold and brought to the neuropsychiatric unit for further evaluation and treatment. Patient had reported that he had consumed alcohol and was positive for alcohol with a blood alcohol level of 184. On interview, the patient stated that he had previously been in the hospital for suicidal thoughts and suicidal ideation but reported that he was currently not suicidal. He stated that he had been drinking and may have said something that was not true. 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 He reports that he has been feeling depressed but has not felt like hurting himself or others. He reports that he is currently not on medications. He had reported having some difficulties with swallowing. He had reported that he had been using methamphetamine intranasally for nearly 20 years. He reports that he has been drinking more than normal approximately 1 pint of beer per day but reports no history of withdrawal seizures. He had reported no prior history of alcohol or substance abuse treatment despite his continued use of methamphetamine.He denies any difficulties with concentration. He denies any feelings of hopelessness or worthlessness. He denied any recent problems with paranoia or psychosis. Psychiatric history: He has a history of inpatient hospitalizations in the past including on the neuropsychiatric unit on 11/17/2019. 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 He is currently not receiving any outpatient treatment. Substance abuse history: hx of methamphetamine abuse since age 13. He reports alcohol abuse with history of withdrawal symptoms. Medical history: Current left-sided abdominal discomfort. Surgical history: None reported Current medications: None Legal history: He had reported a past history of legal issues but stated that he is currently not on probation. Labs: AST elevated-127, 219 ALT, TJ=045 all elevated on 12/30/23. Social history: The patient lives with his mother he has been and has 4 children. 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 He minimized any history of sexual physical or emotional abuse. Excerpt from NPU discharge on 11/17/19 below: Diagnoses at Discharge Discharge Diagnosis (1) Acute psychosis: Status: Acute (2) Drug-induced psychotic disorder: Status: Acute Qualifiers: Complication of substance-induced condition: with delusions Qualified Code(s): F19.950 - Other psychoactive substance use, unspecified with psychoactive substance-induced psychotic disorder with delusions (3) Methamphetamine use: Status: Acute (4) Cannabis use disorder, moderate, in controlled environment, dependence: Status: Acute Reason for Visit PSYCH EVAL Brief History: History of Present Illness Chetan Rodriguez is a 29 year old male who presented to the emergency room after breaking into his ex-'s house reportedly to protect them from some cult. He was talking strangely about a them. And how they do this and they do that. Speaking disorganized referring to strange idioms that may know since her relation to the subject matter but reporting that he was fine. No violence or aggression. But clearly psychotic. He was admitted to the neuropsychiatric unit for definitive treatment of those issues. Unfortunately he has no believes that he has psychosis. He is unaware of his disorganization. He is on 96 hour hold and Focusing on how long he would be here. Finally he was able to discuss the risks benefits and alternatives of starting Abilify and he understood and agreed to proceed as is documented in his note. He was a fairly incapable historian but note from 2016 and a previous evaluation for psychiatric concerns is included below. Per last [facility] IP eval: History of Present Illness Date of Service: August 28, 2015 Reason for Consultation: suicide attempt by overdose. HPI: The patient was admitted to the ICU following a suicide attempt by overdose. He was agitated and was sedated and intubated on admission. He states that he took an unknown amount of Flexeril pills. He has been feeling very depressed and was started on an antidepressant recently, but stopped taking the medication about a week ago. States he has been having relational problems with his of 6 months. States they have been together for 13 years.The patient endorses depressed mood most of the time, anhedonia, reduced appetite, fatigue, trouble concentrating, insomnia, feelings of guilt, frequent thoughts of , psychomotor retardation. He also feels very anxious and states he believes he needs psych treatment. He is not hearing voices and seeing things. A detailed history is inconsistent with manic/hypomanic episodes. Review of Psychiatric Systems: Negative, except as above. Allergies: Coded Allergies: No Known Allergies (Unverified , 08/27/15) Active Meds: Current Hospital Medications: Medications (Trade) Dose Ordered Sig/Charli Route PRN Reason Start Time Stop TimeStatusLast Admin Dose Admin Ondansetron HCl (Zofran Inj) 4 mg Q6H PRN IV FOR NAUSEA AND VOMITING 08/27/15 14:00 Enoxaparin Sodium (Lovenox) 40 mg Q24H SUBQ 08/27/15 14:00 08/27/15 15:06 Acetaminophen (Tylenol Tab) 650 mg Q4H PRN PO FOR MILD PAIN OR INCREASE TEMP 08/28/15 00:15 08/28/15 00:20 Sodium Chloride (Saline Lock Flush) 2 ml PIID IV 08/28/15 14:00 Loratadine (Claritin) 10 mg DAILY PO 08/28/15 10:00 08/28/15 10:15 Fluticasone Propionate (Flonase Nasal [place]) 2 spray BID NA 08/28/15 10:00 08/28/15 10:15 Home Meds: Antidepressant, not known. Past Medical History Past Medical/Social History: PAST PSYCHIATRIC HISTORY:Previous psychiatric admissions:No. Previous suicide attempts:No. SUBSTANCE ABUSE HISTORY: Smokes Cigarettes: No. Previously smoked some marijuana. Alcohol use:No. SOCIAL HISTORY: Employed: A at the [employer]. Is on disability:No. Education: High school. Marital status: . Has 3 children. DEVELOPMENTAL HISTORY: History of Physical, Emotional and Sexual abuse: No. LEGAL HISTORY: None. FAMILY PSYCHIATRIC HISTORY: None reported. PAST MEDICAL HISTORY: None. Hospital Course Hospital Course The patient presented to the emergency room after breaking into his ex-?s house and saying things that did not make sense. She called the police and he refused to give his name, date of and was uncooperative. He ultimately was taken into custody and placed on a 96-hour hold. He was admitted to the neuropsychiatric unit for definitive treatment of those issues. On the neuropsychiatric unit, he was continuing to have psychosis but was able to agree to initiate Abilify which was titrated to 15 mg qam. He tolerated this medication well and had positive response. During the hospitalization, the patient had routine laboratory studies which were within normal limits, except for a few outliers. Additionally, he had a general medical evaluation which was within normal limits and revealed no new acute processes. Discharge Summary At the time of discharge the patient denied all lethality, was absent psychosis, and mood and anxiety were well managed. The patient endorsed a plan to avoid all drugs of abuse and to follow-up with outpatient services, as recommended. He was evaluated and deemed to be absent credible lethality, and had achieved the maximum benefit from an inpatient hospitalization, and so he was discharged. Involuntary Hold Information 96 Hour Hold: 96 Hour Involuntary Admission: Yes 96 Hour Hold Ending Date: 11/18/19 96 Hour Hold Ending Time: 12:01 Mental Status Exam MSE Comments: This is a slender white male with adequate dress grooming and eye contact. No abnormal movements. Cooperative with exam in no acute distress. Speech was normal rate and volume. Mood described as good, affect less guarded. Thought process more organized. Thought content: Patient denied suicidal or homicidal ideation, there were no delusions reported and clear persecutory and paranoid and slightly hyperreligious delusions are resolving. He denied auditory or visual hallucinations. Attention and concentration appeared intact and memory was more but none were formally tested. He is alert and oriented times 3. Insight and judgment are improving, impulse control is impaired, but improving. Discharge Data Vitals: Last Vital Signs Temp 97.5 F L 11/17/19 06:00 Pulse 51 L 11/17/19 06:00 Resp 19 H 11/17/19 06:00 BP 131/81 11/17/19 06:00 Pulse Ox 98 11/17/19 06:00 Discharge Plan Discharge Patient Disposition: Home Condition: Stable Prescriptions: New trazodone 50 mg Tablet 50 mg PO BEDTIME PRN (Reason: Sleep) 30 Days Qty: 30 RF: 1 hydroxyzine pamoate 25 mg Capsule 50 mg PO Q6H PRN (Reason: Anxiety) 30 Days Qty: 180 RF: 1 aripiprazole 30 mg Tablet 15 mg PO DAILY 30 Days Qty: 15 RF: 1 Continued No Known Home Medications RF: 0 Discharge Orders: Discharge Order (Routine); Ordered 11/17/19 Ordered By: Bc Rider Referrals: [facility] [place] [facility] [Outside] - 1-3 days (To get outpatient mental health services, call [facility] or go to [facility] ([facility]) Thursday through Thursday any time from 7:30 a.m. -2:30 p.m. and request initial intake. You must do that as soon as you can so that you can get a follow-up appointment as soon as possible. ) Discharge Diet: Regular Discharge Activity: Resume usual activity Patient Instructions: Trazodone (By mouth), Hydroxyzine Pamoate (By mouth), Aripiprazole (By mouth), Methamphetamine Abuse (DC), Anxiety (DC) Discharge Date/Time: 11/17/19 11:20 Discharge Attestations NPU Time Spent in Discharge Care*: less than 30 min Specific Discharge Activities: Specific discharge activities: educating patient, discussing with nurse outreach case manager/social workers/dc planners, documenting/other paperwork and evaluating patient/reviewing data Time Spent in Smoking Cessation: Time spent discussing smoking cessation with patient: 3 to 10 minutes Coding Level of Care Code Acute [facility] Attendant for [facility] Fwd Diagnoses Acute psychosis F23 Drug-induced psychotic disorder F19.950 Complication of substance-induced condition: with delusions Methamphetamine use F15.10 Cannabis use disorder, moderate, in controlled environment, dependence F12.20 Meds NPU Home Medications Medication Instructions Recorded Confirmed Last Taken Type fast form julius marquezter #1 ea 02/12/21 05/27/22 Unknown Rx cam boot to right #1 ea 05/27/22 05/27/22 Unknown Rx Allergies Allergy/AdvReac Type Severity Reaction Status Date / Time No Known Allergies Allergy Verified 12/30/23 18:02 [facility] NPU 2 PFSH: Social History Smoking and tobacco/nicotine status: current every day tobacco/nicotine user Mental Status Exam 2 MSE Comments: This is a slender white male with adequate dress, grooming and fair eye contact. No abnormal involuntary motor movements. He was cooperative with exam in no acute distress. Speech was normal in rate and volume. Mood described as good. His affect was euthymic. Thought process was linear, logical and goal directed. Thought content: Patient denied suicidal or homicidal ideation. There were no delusions reported and the patient did not appear to be responding to internal stimuli. He denied auditory or visual hallucinations. Attention and concentration appeared intact and memory was more but none were formally tested. He is alert and oriented times x3. Insight was fair. His impulse control is limited. His judgment is fair. Vitals/I&O/Wt Last Vital Signs Temp 97.6 F 12/30/23 21:21 Pulse 65 12/31/23 04:00 Resp 16 12/31/23 04:00 BP 119/82 12/31/23 04:00 Pulse Ox 100 12/31/23 04:00 O2 Del Method Room Air 12/30/23 21:29 Weight last 48 hrs Weight 76.204 kg Data NPU 12/30/23 18:50 12/30/23 18:50 A&P Assessment and plan (1) Alcohol intoxication: (2) Suicidal ideation: (3) Methamphetamine use: Plan 33-year-old male with a history of polysubstance abuse admitted with suicidal ideation currently minimizing suicidal thoughts at this time. #1.? Engage patient in individual milieu and group therapy. #2?? Recommend sober living treatment at the highest level of care to which the patient is willing to commit #3??? CIWA for alcohol withdrawal #4?? TO-15 minute checks? #5?? Will attempt to gather collateral information, medicine consult and US ordered with patient complaining of left sided abdominal pain and elevated liver function tests. Involuntary Hold Information 2 96 Hour Hold: 96 Hour Involuntary Admission: Yes Attestations NPU 2 Medical Necessity Statement*: Inpatient hospitalization is medically necessary and the clinically appropriate intervention at this time. We will monitor medications and make adjustments as indicated. Likely length of stay 1-3 days. Coding Level of Care Code Acute Code for Chg Fwd Diagnoses Alcohol intoxication F10.929 Suicidal ideation R45.851 Methamphetamine use F15.10
--- NOTE | 2023-12-31 13:03 | PC.NURSE ---
NEW ORDERS RECEIVED FOR BEDSIDE ULTRASOUND OF ABDOMEN DUE TO INCREASED LIVER ENZYMES AND STOMACH PAIN. ORDERS RECEIVED FROM DR. GARCIA.
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
[2023-12-31 15:55] VITALS: BP 144/97; PULSE 61; RESP 16; TEMP 37; O2SAT 100
--- NOTE | 2023-12-31 16:36 | USR_ITS ---
PROCEDURE INFORMATION: Exam: US Abdomen, Limited; Right Upper Quadrant Exam date and time: 12/31/2023 4:45 PM Age: 33 years old Clinical indication: Abnormal findings; Abnormal lab test; Elevated liver enzymes TECHNIQUE: Imaging protocol: Real time ultrasound of the abdomen with image documentation. Limited exam focused on the right upper quadrant. COMPARISON: CR (ABDOMEN, ) 12/30/2023 7:12 PM FINDINGS: Liver: Normal. No masses. Liver measures 17.9 cm in length. Gallbladder: Gallbladder appears somewhat contracted, likely related to recent p.o. intake. No gallstones. There is no gallbladder wall thickening. Biliary ducts: Normal. No stones. No dilation. Common bile duct measures 0.5 cm in caliber. Pancreas: Visualized pancreas is unremarkable. Right kidney: Normal. No mass. No hydronephrosis. Right kidney measures 10.5 cm in length. Aorta: Visualized aorta measures 1.5 cm. Inferior vena cava: Upper IVC measures 2.4 cm in caliber. Portal venous: Main portal vein measures 1.1 cm in caliber near the osiris hepatis. US/US abdomen limited [id number] IMPRESSION: 1. No acute findings. 2. Mild hepatomegaly.
== END 2023-12-31 18:01 | disposition home or self-care (01) | DRG 897 ==
LOC: ER 19:11 → NP 19:33
PROVIDERS: Admitting Provider Psychiatry & Neurology Psychiatry; Emergency Provider Emergency Medicine; Visit Provider Psychiatry & Neurology Psychiatry
DX: F10.129 Alcohol abuse with intoxication, unspecified (principal); R45.851 Suicidal ideations; Y90.6 Blood alcohol level of 120-199 mg/100 ml; F32.A Depression, unspecified; F15.90 Other stimulant use, unspecified, uncomplicated
CPT/HCPCS: 36415; 74022; 76705; 80053; 80306; 80307; 81001; 83690; 84443; 85025; 97150; 97165

== ENCOUNTER 2024-06-19 13:05 | Emergency (ER) | payer MEDICAID, SELFPAY ==
[2024-06-19 13:23] VITALS: BP 113/68; PULSE 71; RESP 16; TEMP 36.9; O2SAT 99; BMI 23.7
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
[2024-06-19] MEDS: tetanus-dipt-pertussis 0.5 mL SDV IM (14:08)
[2024-06-19] MEDS: lidocaine 1% 10 ML INJ SUBCUT (14:08)
== END 2024-06-19 14:15 | disposition home or self-care (01) ==
PROVIDERS: Emergency Provider Emergency Medicine
DX: S51.811A Laceration without foreign body of right forearm, initial encounter (principal); W26.8XXA Contact with other sharp object(s), not elsewhere classified, initial encounter; Z72.0 Tobacco use; Z23 Encounter for immunization
CPT/HCPCS: 12002; 90471; 90715; 99283; J9999

== ENCOUNTER 2024-08-29 14:15 | Emergency (ER) | payer MEDICAID, SELFPAY ==
--- NOTE | 2024-08-29 14:23 | W.ED.PSYCHS ---
HPI - Psych General: Chief Complaint: Psychiatric Symptoms Stated Complaint: [facility] [place] sent, pt said not SI wont tell me anything Time Seen by Provider: 08/29/24 14:20 Source: patient Mode of arrival: ambulatory Limitations: no limitations History of Present Illness: Patient is a 33-year-old male presents to ED today after his mother brought him here after he was evaluated by I. [facility] had reportedly recommended he come to the emergency department but did not fill out any form of paperwork/affidavit. We were able to contact [facility] and speak to the therapist that assessed him. She states she did not have anything substantial to file an affidavit. Upon arrival, patient tells me he is not suicidal or homicidal. He does seem to have some degree of mild paranoia. He does not seem to be responding to external stimuli. I spoke to mother alone who thinks he may have some degree of chronic schizophrenia but is not on medication for this. She states he is anxious and somewhat depressed but has not made suicidal statements at home. She agrees he is paranoid but has never acted upon these thoughts. She states she does not have anything to place him on a hold. Patient was hoping ED provider could start on medications and let him go home. States he has an intake assessment through [facility] [place] this week or next. MD complaint: feels depressed and other (anxious, paranoid) Duration: intermittent History of same: Yes Relieving factors: none Exacerbating factors: none Associated psychiatric symptoms: depression and other (anxiety, paranoia) Associated symptoms: Reports depression; Deny auditory hallucinations, visual hallucinations, homicidal ideation or suicidal ideation Treatments prior to arrival: none Related Data Home Medications ?Medication ?Instructions ?Recorded ?Confirmed No Known Home Medications 06/19/24 08/29/24 Allergies Allergy/AdvReac Type Severity Reaction Status Date / Time No Known Allergies Allergy Verified 12/30/23 18:02 Review of Systems Const: Denies: fever(s) or chills Card: Denies: chest pain, palpitations, lightheadedness or syncope Resp: Denies: dyspnea GI: Denies: abdominal pain, nausea, vomiting or diarrhea Skin/Breast: Denies: rash Neuro: Denies: headache(s) Psych: Reports: anxiety, depression and paranoia; Denies: mood swings, panic attacks, sleeping more, hopelessness, loss of interest, change in appetite, irritability, memory loss, visual hallucinations, auditory hallucinations, suicidal ideation or homicidal ideation PFS ED PFSH: Social History Smoking and tobacco/nicotine status: current every day tobacco/nicotine user Physical Exam Const: COMMON NORMALS: no acute distress, average body habitus, patient oriented x3, no limitations, healthy appearing, alert and well nourished GENERAL APPEARANCE: cooperative and well kempt Resp: COMMON NORMALS: normal respiratory effort and clear to auscultation bilaterally AUSCULTATION: clear to auscultation bilaterally Cardio: COMMON NORMALS: regular rate and regular rhythm RATE: regular rate RHYTHM: regular rhythm Neuro: BETHANY COMA SCALE: document GCS findings Bethany coma scale eye opening: Spontaneous Willard coma scale verbal response: Orientated Willard coma scale motor response: Obey commands Bethany coma scale total score: 15 COMMON NORMALS: patient oriented x3 SENSORIUM/ORIENTATION: Yes alert Psych: COMMON NORMALS: mental status grossly normal, Normal thought process present, cooperative, normal affect, speech normal, activity/motor behavior normal, denies homicidal ideation and denies suicidal ideation APPEARANCE: Yes grossly normal and Yes well kempt ATTITUDE: Yes calm ACTIVITY/MOTOR BEHAVIOR: Yes appropriate eye contact and No psychomotor agitation SPEECH: Yes normal speech MOOD & AFFECT: Yes euthymic mood THOUGHT PROCESS: Normal thought process present THOUGHT CONTENT: Yes Normal thought content present ATTENTION/CONCENTRATION: Yes attention grossly intact and Yes concentration grossly intact MEMORY/COGNITION: Yes memory grossly intact and Yes cognition grossly intact INSIGHT: Fair insight present (Psych) JUDGEMENT: Good judgement present (Psych) Course Vital Signs: Vital signs: Vital Signs Temperature 98.2 F 08/29/24 14:25 Pulse Rate 86 08/29/24 14:25 Respiratory Rate 18 08/29/24 14:25 Blood Pressure 160/99 08/29/24 14:25 Pulse Oximetry 100 08/29/24 14:25 Oxygen Delivery Me thod Room Air 08/29/24 14:25 MDM - Psych Medical Decision Making Patient is not SI/HI. Mother states he has not done anything at home to put himself or others in harm. [facility] also stated there was nothing to place hold/affidavit on chart. Here, he does admit to some mild paranoid but this is chronic. He is unwilling to stay/be admitted to [facility]. 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 I do not have enough based on my assessment to place him on a 96 hour hold thus will allow discharge. Recommend he continue plan for [facility] [place] outpatient follow up. Medical Records I reviewed the patient's medical records. No radiology studies performed this visit Discharge Plan Discharge Patient Disposition: Home Clinical Impression: Anxiety, Paranoia Condition: Stable Prescriptions: No Action No Known Home Medications Discharge Orders: Discharge ED (Routine); Ordered 08/29/24 Ordered By: Kristi Cardenas Activity Restrictions/Additional Instructions: As we discussed, continue to follow-up with behavioral health care for further evaluation and treatment of symptoms. If at any point you are agreeable to inpatient care you may return to the emergency department. Print Language: Chinese Coding Level of Care Code ED Design Engineering Technician for Nicolle Kitchen
[2024-08-29 14:25] VITALS: BP 160/99; PULSE 86; RESP 18; TEMP 36.8; O2SAT 100; BMI 23.7
== END 2024-08-29 15:10 | disposition home or self-care (01) ==
PROVIDERS: Emergency Provider Physician Assistant
DX: F41.9 Anxiety disorder, unspecified (principal); F22 Delusional disorders; Z72.0 Tobacco use
CPT/HCPCS: 99283

== ENCOUNTER 2025-02-14 10:31 | Emergency (ER) | payer MEDICAID, SELFPAY ==
--- NOTE | 2025-02-14 10:36 | XR_ITS ---
WS: [id number] XR chest 1V portable [id number] REASON FOR EXAM: dyspnea/cough FINDINGS: The heart and the mediastinum are within normal limits. Calcified granulomatous disease bilaterally. No acute pulmonary parenchymal or pleural abnormality. Irregular dense metallic foreign body overlying the medial left hemidiaphragm. Moderate degenerative spondylosis in the mid and lower thoracic spine. XR/XR chest 1V portable [id number] IMPRESSION: No acute chest abnormality.
[2025-02-14 10:37] VITALS: BP 168/106; PULSE 73; RESP 18; TEMP 36.6; O2SAT 100; BMI 23.7
--- NOTE | 2025-02-14 10:47 | ED_ITS ---
HPI - General Adult 2 General: Chief complaint: General Medical Stated complaint: Hot/cold Fashes and Sob Time Seen by Provider: 02/14/25 10:35 History of Present Illness: 34-year-old male presents emergency room with hot cold flashes for the last 12 hours. Patient states he has been very stressed and depressed. He has been drinking very heavily drinks 10-12 shots per day. His last drink was around yesterday at 1. [facility] [place] his blood pressure was markedly elevated. He is complaining of some shortness of breath and mildly productive cough as well denies any hemoptysis. He also has intermittent chest pain and left upper quadrant pain radiating into his back. No fever sweats chills no dysuria urgency or frequency no flank pain Associated symptoms: Deny chest pain, dyspnea or rash Related Data Previous Rx's ?Medication ?Instructions ?Recorded pantoprazole 40 mg tablet,delayed 40 mg PO BID 10 days #40 tabs 02/14/25 release hydrocodone 5 mg-acetaminophen 325 1 tab PO Q6H PRN pa in #14 tabs 02/16/25 mg tablet Allergies Allergy/AdvReac Type Severity Reaction Status Date / Time No Known Allergies Allergy Verified 12/30/23 18:02 Review of Systems 2 Const: Denies: fever(s) or chills Card: Denies: chest pain Resp: Denies: dyspnea GI: Denies: abdominal pain : Denies: dysuria, urinary frequency or urinary urgency Musc: Denies: neck pain or back pain Skin/Breast: Denies: rash PFSH ED 2 PFSH: Social History Smoking and tobacco/nicotine status: current every day tobacco/nicotine user Physical Exam 2 Const: GENERAL APPEARANCE: cooperative ORIENTATION/CONSCIOUSNESS: Yes awake, Yes oriented to person, Yes oriented to place and Yes oriented to time HENMT: COMMON NORMALS: normocephalic, atraumatic and hearing grossly normal bilaterally HEAD & SCALP: normocephalic and atraumatic Resp: COMMON NORMALS: normal respiratory effort, No retractions, No use of accessory muscles and clear to auscultation bilaterally AUSCULTATION: clear to auscultation bilaterally Cardio: COMMON NORMALS: regular rate, regular rhythm and No murmurs present (Cardio) RATE: regular rate RHYTHM: regular rhythm GI: COMMON NORMALS: Soft to palpation and No hepatosplenomegaly present A USCULTATION: Yes normoactive bowel sounds PALPATION: Yes Soft to palpation, No Tenderness to palpation present (GI), No Guarding due to palpation present (GI) and Yes No hepatosplenomegaly present Extremity: COMMON NORMALS: normal to inspection, capillary refill normal, no clubbing, cyanosis or edema, no calf tenderness and no pedal edema Neuro: SENSORIUM/ORIENTATION: Yes oriented to person, Yes oriented to place and Yes oriented to time Skin: COMMON NORMALS: no rashes or lesions noted GENERAL SKIN EXAM: no rashes or lesions noted Course 2 Vital Signs: Vital signs: Vital Signs Temperature 97.8 F 02/14/25 10:37 Pulse Rate 72 02/14/25 11:04 Respiratory Rate 18 02/14/25 10:37 Blood Pressure 149/100 02/14/25 13:11 Pulse Oximetry 98 02/14/25 11:04 Oxygen Delivery Me thod Room Air 02/14/25 11:04 MDM - General Adult Medical Decision Making Labs and imaging reviewed no significant findings. Think a lot of his pain is reflux esophagitis alcoholic gastritis did have some improvement with the GI cocktail. Will discharge him home. He did not have an elevation of his lipase. Discussed with him the urgent need for him to stop drinking especially the volumes he is at. He expressed understanding. Referred him to [facility]. Start him on pantoprazole 40 mg twice daily for 10 days then 40 mg daily Medical Records I reviewed the patient's medical records. Lab Data I reviewed the patient's lab results. 02/14/25 10:57 02/14/25 10:57 Radiology Impressions Chest X-Ray 02/14/25 10:36 IMPRESSION: No acute chest abnormality. Laboratory Results WBC 6.34 10^3/uL (3.29-11.43) 02/14/25 10:57 RBC 4.84 10^6/uL (3.85-5.65) 02/14/25 10:57 Hgb 15.90 g/dL (11.27-16.99) 02/14/25 10:57 Hct 44.0 % (37-53) 02/14/25 10:57 MCV 90.9 fl (82-101) 02/14/25 10:57 MCH 32.9 pg (27-33) 02/14/25 10:57 MCHC 36.1 g/dL (30-55) 02/14/25 10:57 RDW 12.2 % (12.1-15.1) 02/14/25 10:57 Plt Count 245 10^3/cmm (157-399) 02/14/25 10:57 MPV 8.4 fL (7.4-10.4) 02/14/25 10:57 Neut % (Auto) 67.3 % 02/14/25 10:57 Lymph % (Auto) 18.5 % 02/14/25 10:57 [place] % (Auto) 11.8 % 02/14/25 10:57 Eos % (Auto) 1.6 % 02/14/25 10:57 Baso % (Auto) 0.5 % 02/14/25 10:57 Neut # (Auto) 4.27 10^3/uL (1.8-7.7) 02/14/25 10:57 Lymph # (Auto) 1.2 10^3/uL (0.8-4.8) 02/14/25 10:57 [place] # (Auto) 0.8 10^3/uL (0.2-0.9) 02/14/25 10:57 Eos # (Auto) 0.1 10^3/uL (0.0-0.8) 02/14/25 10:57 Baso # (Auto) 0.0 10^3/uL (0.0-0.1) 02/14/25 10:57 Nucleated RBC % (auto) 0 % 02/14/25 10:57 Nucleated RBCs # 0.0 /100WBC 02/14/25 10:57 Sodium 136 mmol/L (136-145) 02/14/25 10:57 Potassium 4.7 mmol/L (3.5-5.1) 02/14/25 10:57 Chloride 99 mmol/L (98-107) 02/14/25 10:57 Carbon Dioxide 22 mmol/L (22-29) 02/14/25 10:57 Anion Gap 19.7 (5-19) H 02/14/25 10:57 BUN 8 mg/dL (6-20) 02/14/25 10:57 Creatinine 0.9 mg/dL (0.7-1.2) 02/14/25 10:57 GFR Calculation 97.2 mL/min (90-130) 02/14/25 10:57 Glucose 110 mg/dL (65-115) 02/14/25 10:57 Calculated Osmolality 281 mOsm/kg (285-295) L 02/14/25 10:57 Calcium 9.3 mg/dL (8.5-10.5) 02/14/25 10:57 Total Bilirubin 1.2 mg/dL (0.15-1.2) 02/14/25 10:57 AST 105 U/L (0-40) H 02/14/25 10:57 ALT 145 U/L (0-41) H 02/14/25 10:57 Alkaline Phosphatase 144 U/L (40-130) H 02/14/25 10:57 Troponin T Baseline < 6 ng/L (0-15) 02/14/25 11:56 Total Protein 7.5 g/dL (6.6-8.7) 02/14/25 10:57 Albumin 4.6 g/dL (3.5-5.2) 02/14/25 10:57 Globulin 2.9 g/dL (1.3-4.6) 02/14/25 10:57 Lipase 28 U/L (13-60) 02/14/25 10:57 Influenza A (PCR) Negative (Negative) 02/14/25 10:56 Influenza Type B (PCR) Negative (Negative) 02/14/25 10:56 RSV (PCR) Negative (Negative) 02/14/25 10:56 SARS-CoV-2 (PCR) Negative (Negative) 02/14/25 10:56 All radiology interpretation(s) finalized by discharge ED provider radiology interpretation(s): Normal chest x-ray no acute findings EKG Data EKG 1: I personally reviewed and interpreted this EKG as follows: Interpretation: EKG 02/14/2025 1048 sinus rhythm no significant ST changes rate is 73 TN interval 178 QTc 425. EKG 08/27/2015 no acute changes Computer generated interpretation: Chest X-Ray 02/14/25 10:36 IMPRESSION: No acute chest abnormality. EKG 2: I personally reviewed and interpreted this EKG as follows: Interpretation: EKG 02/14/2025 1146 sinus rhythm rate of 66 TN interval 198 QTc [address] changes noted compared to EKG done earlier same day no significant changes Computer generated interpretation: Chest X-Ray 02/14/25 10:36 IMPRESSION: No acute chest abnormality. Discharge Plan Discharge Patient Disposition: Home Clinical Impression: Alcohol use disorder, Esophagitis, Alcoholic gastritis Condition: Stable Prescriptions: New pantoprazole 40 mg tablet,delayed release (DR/EC) 40 mg PO BID 10 Days Qty: 40 0RF No Action hydrocodone-acetaminophen 5-325 mg tablet 1 tab PO Q6H PRN (Reason: pain) Qty: 14 0RF Discharge Orders: Discharge ED (Routine); Ordered 02/14/25 Ordered By: Matthieu Gibson Discharge Diet: Usual diet Discharge Activity: Resume usual activity Patient Instructions: Chest Pain (ED), Abuse of Alcohol (ED), Opioid Safety, Pain Management, Patient Portal & Aaron Instructions Activity Restrictions/Additional Instructions: Thank you for choosing [facility] for your healthcare needs today. It is very important that you follow up as instructed or that you return to the Emergency Department should you have concerns or if your condition changes or worsens in any way. Emergency department visits are focused on emergent conditions, in some cases you may require further evaluation on an outpatient basis. You were seen in the emergency room with chest and epigastric pain. Based on your history and laboratory studies done in the emergency room as well as EKGs this appears to be more related to your alcohol use. Suspect you have alcoholic gastritis with some reflux esophagitis will start you on pantoprazole. Cardiac enzymes and EKGs were normal. We also recommend that after leaving here you be seen at crisis stabilization. They can help you with getting into [facility] options to help with alcohol abstinence and depression medications. (Please note that included in your discharge packet is information concerning opioid safety and pain management. This information is given to all patients were discharged from the ER regardless of their discharge diagnosis or the medicines they usually take or are prescribed.) Print Language: Equatorial [place]inean Coding Level of Care Code ED Collision Estimator for Nicolle Kitchen
--- NOTE | 2025-02-14 10:48 | ECG_ITS ---
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 Measurements Intervals [place] Rate: 73 P: 82 [place]: 178 QRS: 76 QRSD: 100 T: 63 QT: 383 QTc: 423 Interpretive Statements SINUS RHYTHM MINIMAL ST DEPRESSION [0.025+ mV ST DEPRESSION] Compared to ECG 08/27/2015 09:51:16 ST (T wave) deviation now present Electronically Signed On 02-15-2025 08:52:22 PROJECTION TECHNICIAN by Danny Noriega M.D. [email or web address]
[2025-02-14 11:04] VITALS: PULSE 72; O2SAT 98
[2025-02-14 11:09] LABS: Hematocrit 44.0 % (37-53); Hemoglobin 15.90 g/dL (11.27-16.99); Mean Corpuscular HGB Conc 36.1 g/dL (30-55); Mean Corpuscular Hemoglobin 32.9 pg (27-33); Mean Corpuscular Volume 90.9 fl (82-101); Nucleated Red Blood Cells % 0 %; Platelet Count 245 10^3/cmm (157-399); Red Blood Count 4.84 10^6/uL (3.85-5.65); White Blood Count 6.34 10^3/uL (3.29-11.43)
[2025-02-14 11:22] LABS: Albumin Level 4.6 g/dL (3.5-5.2); Alkaline Phosphatase 144 U/L (40-130); Blood Urea Nitrogen 8 mg/dL (6-20); Calcium 9.3 mg/dL (8.5-10.5); Carbon Dioxide 22 mmol/L (22-29); Chloride 99 mmol/L (98-107); Globulin 2.9 g/dL (1.3-4.6); Glucose 110 mg/dL (65-115); Lipase 28 U/L (13-60); Osmolality Calculated 281 mOsm/kg (285-295); Sodium 136 mmol/L (136-145); Total Protein 7.5 g/dL (6.6-8.7)
[2025-02-14 11:26] LABS: Alanine Aminotransferase 145 U/L (0-41); Anion Gap 19.7 (5-19); Aspartate Amino Transferase 105 U/L (0-40); Potassium 4.7 mmol/L (3.5-5.1)
[2025-02-14 11:31] VITALS: BP 166/101
--- NOTE | 2025-02-14 11:36 | ECG_ITS ---
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 Measurements Intervals [place] Rate: 66 P: 59 WV: 190 QRS: 50 QRSD: 101 T: 28 QT: 399 QTc: 418 Interpretive Statements SINUS RHYTHM WITH SINUS ARRHYTHMIA Compared to ECG 02/14/2025 10:48:12 ST (T wave) deviation no longer present Electronically Signed On 02-15-2025 08:52:06 DERMATOLOGY SPECIALIST by Danny Noriega M.D. [email or web address]
[2025-02-14 11:45] LABS: Respiratory Syncytial Virus Ce NEGATIVE (Negative); SARS-CoV-2 PCR NEGATIVE (Negative)
[2025-02-14] MEDS: lidocaine 2% viscous 15 ML, aluminum-mag hydrox-simethicon 30 ML, sucralfate oral liq 1 GM PO (11:57)
[2025-02-14 12:31] LABS: Troponin(5th) Baseline < 6 ng/L (0-15)
[2025-02-14 13:11] VITALS: BP 149/100
== END 2025-02-14 13:36 | disposition home or self-care (01) ==
PROVIDERS: Emergency Provider Family Medicine
DX: F10.20 Alcohol dependence, uncomplicated (principal); Z11.52 Encounter for screening for COVID-19; K20.90 Esophagitis, unspecified without bleeding; K29.20 Alcoholic gastritis without bleeding; Z72.0 Tobacco use
CPT/HCPCS: 36415; 71045; 80053; 83690; 84484; 85025; 87637; 93005; 96360; 99285; J7030; J9999

== ENCOUNTER 2025-02-16 13:37 | Emergency (ER) | payer MEDICAID, SELFPAY ==
[2025-02-16 13:38] VITALS: BP 181/09; PULSE 72; RESP 16; TEMP 36.4; O2SAT 100; BMI 23.0
--- NOTE | 2025-02-16 13:48 | XR_ITS ---
WS: [id number] XR wrist LT min 3V* [id number] REASON FOR EXAM: injury FINDINGS: Nondisplaced ulnar styloid fracture extending obliquely into the distal ulnar metaphysis. Comminuted distal longitudinal/oblique ulnar diaphyseal fracture with moderate ventral displacement of the distal fracture fragments. XR/XR wrist LT min 3V* [id number] IMPRESSION: Ulnar fractures as above.
--- NOTE | 2025-02-16 14:07 | XR_ITS ---
WS: [id number] XR forearm LT 2V [id number] REASON FOR EXAM: injury FINDINGS: Distal ulnar fractures as described on the wrist examination. The remainder of the ulna and the radius are unremarkable. XR/XR forearm LT 2V [id number] IMPRESSION: Distal ulnar fractures.
--- NOTE | 2025-02-16 14:08 | ED_ITS ---
HPI - Extremity Problem General: Chief complaint: Extremity Injury, Upper Stated complaint: L arm hurt Swollen Time Seen by Provider: 02/16/25 14:01 Source: patient Mode of arrival: ambulatory Limitations: no limitations History of Present Illness: 34-year-old male states he was cutting t audrey and the machine kicked back and hit him in his left forearm. Patient states that he has swelling to his left distal forearm along with pain he rates a 9 out of 10. He denies any other injuries. Has no lacerations or abrasions. Related Data Previous Rx's ?Medication ?Instructions ?Recorded pantoprazole 40 mg tablet,delayed 40 mg PO BID 10 days #40 tabs 02/14/25 release hydrocodone 5 mg-acetaminophen 325 1 tab PO Q6H PRN pa in #14 tabs 02/16/25 mg tablet Allergies Allergy/AdvReac Type Severity Reaction Status Date / Time No Known Allergies Allergy Verified 12/30/23 18:02 Review of Systems Musc: Reports: extremity pain [facility] ED PFSH: Social History Smoking and tobacco/nicotine status: current every day tobacco/nicotine user Physical Exam Const: COMMON NORMALS: no acute distress, patient oriented x3 and healthy appearing HENMT: COMMON NORMALS: normocephalic and atraumatic HEAD & SCALP: normocephalic and atraumatic Neck/C-Spine: COMMON NORMALS: full ROM and supple Chest: COMMONS NORMALS: normal inspection of the chest Resp: COMMON NORMALS: normal respiratory effort Cardio: COMMON NORMALS: regular rate RATE: regular rate Extremity: COMMON NORMALS: full ROM NARRATIVE EXTREMITY EXAM: Swelling to left distal forearm with tenderness Neuro: COMMON NORMALS: patient oriented x3, moves all extremities and no focal motor deficits Psych: COMMON NORMALS: mental status grossly normal, Normal thought process present and cooperative THOUGHT PROCESS: Normal thought process present Skin: COMMON NORMALS: no rashes or lesions noted and no wounds GENERAL SKIN EXAM: no rashes or lesions noted Course Vital Signs: Vital signs: Vital Signs Temperature 97.6 F 02/16/25 13:38 Pulse Rate 72 02/16/25 13:38 Respiratory Rate 16 02/16/25 13:38 Blood Pressure 162/114 02/16/25 14:30 Pulse Oximetry 99 02/16/25 14:30 Oxygen Delivery Me thod Room Air 02/16/25 13:38 MDM - Extremity (Nontraumatic) Medical Decision Making Patient presents for left forearm injury x-ray does show a distal ulnar fracture. He is neurovascularly intact compartments are soft no signs of compartment syndrome. Did place him in a splint I did speak to orthopedist Dr. Ulloa who reviewed films and is going to follow-up with him. Did prescribe [place] for home did inform him needs to follow-up with Dr. Ulloa return if worsening he understands agrees to plan. Medical Records I reviewed the patient's medical records. Lab Data Radiology Impressions Wrist X-Ray 02/16/25 13:48 IMPRESSION: Ulnar fractures as above. Forearm X-Ray 02/16/25 14:07 IMPRESSION: Distal ulnar fractures. All radiology interpretation(s) finalized by discharge Discharge Plan Discharge Patient Disposition: Home Clinical Impression: Fracture of left ulna Qualifiers: Encounter type: initial encounter Ulna location: distal Fracture type: closed Fracture morphology: unspecified fracture morphology Qualified Code(s): S52.602A - Unspecified fracture of lower end of left ulna, initial encounter for closed fracture Condition: Stable Prescriptions: New hydrocodone-acetaminophen 5-325 mg tablet 1 tab PO Q6H PRN (Reason: pain) Qty: 14 0RF No Action pantoprazole 40 mg tablet,delayed release (DR/EC) 40 mg PO BID 10 Days Qty: 40 0RF Discharge Orders: Discharge ED (Routine); Ordered 02/16/25 Ordered By: Margaret Hill Discharge Diet: Advance as tolerated Discharge Activity: Resume usual activity Patient Instructions: Arm Fracture in Adults (ED), Opioid Safety Print Language: Maori Coding Level of Care Code ED Metaphysics Teacher for Nicolle Kitchen
[2025-02-16 14:09] VITALS: BP 150/121; O2SAT 100
[2025-02-16] MEDS: HYDROcodone-acetaminophen 5-325 mg Tablet 1 TAB PO (14:11)
[2025-02-16 14:30] VITALS: BP 162/114; O2SAT 99
[2025-02-16 15:21] VITALS: BP 170/130; PULSE 76; RESP 16; O2SAT 98
--- NOTE | 2025-02-20 07:48 | DCPLANNER ---
messaged ortho for er f/u
== END 2025-02-16 15:21 | disposition home or self-care (01) ==
PROVIDERS: Emergency Provider Emergency Medicine
DX: S52.602A Unspecified fracture of lower end of left ulna, initial encounter for closed fracture (principal); Z72.0 Tobacco use; W22.8XXA Striking against or struck by other objects, initial encounter
CPT/HCPCS: 73090; 73110; 99283; J9999

== ENCOUNTER → 2025-02-21 08:37 | Outpatient (BNVA) | payer MEDICAID, SELFPAY | PROVIDERS: Visit Provider Orthopaedic Surgery | DX: Z01.818 Encounter for other preprocedural examination (principal); S52.602A Unspecified fracture of lower end of left ulna, initial encounter for closed fracture; X58.XXXA Exposure to other specified factors, initial encounter | CPT/HCPCS: 36415; 73110; 80053; 81001; 85025 ==

== ENCOUNTER 2025-03-01 10:13 | Day surgery (SDC) | payer MEDICAID, SELFPAY ==
[2025-03-01] VITALS (14 sets, daily range): BP systolic 136–191; BP diastolic 106–125; PULSE 68–89; RESP 14–22; TEMP 36.3–36.8; O2SAT 96–100; BMI 24.4
--- NOTE | 2025-03-01 11:01 | PC.NURSE ---
Addendum entered by Shanna Hightower RN 03/01/25 12:13: drug screen negative p/t pt taken to sx Original Note: [facility] DRUG SCREEN SENT TO LAB DT HIGH BLOOD PRESSURE
[2025-03-01 11:08] LABS: PCP Screen Urine Negative (Negative)
[2025-03-01] MEDS: labetalol 5 mg/mL SDV 20mL 10 MG IVP ×2 (11:25→13:16)
--- NOTE | 2025-03-01 11:27 | W.PM.OPSUD ---
Surgery/Procedure H&P Update DATE OF PROCEDURE: March 01, 2025 DATE H&P PERFORMED: 02/21/25 H&P UPDATE INFORMATION: I have reviewed H&P completed within last 30 days, I have examined patient prior to procedure and No changes to prior documentation PREOP DIAGNOSIS: Left distal ulnar fracture PLANNED PROCEDURE: Operation Date: 03/01/25 11:40 Proposed Procedures p ORIF Ulna(Left) - Ethan Ulloa DO
--- NOTE | 2025-03-01 11:28 | ANES.PREANE2 ---
Pre-Anesthetic Assessment Height/Weight: Height 1.8 m Weight 79.379 kg Temp Pulse Resp BP Pulse Ox O2 Del Method 97.9 F 77 16 191/111 98 Room Air 03/01/25 10:25 03/01/25 10:25 03/01/25 10:25 03/01/25 10:25 03/01/25 10:25 03/01/25 10:25 Preop Diagnosis: Left distal ulnar fracture Operation Date: 03/01/25 11:40 Proposed Procedures p ORIF Ulna(Left) - Ethan Ulloa DO Familial anesthetic complications: None Was Beta Nita taken within 24 hours: N/A Was Clonidine taken within 24 hours: N/A Last intake: Intake Last Liquid Date 02/28/25 Last Liquid Time 20:00 Last Solid Date 02/28/25 Last Solid Time 20:00 Social Alcohol and Tobacco Hx meth abuse - denies recennt use Exam alert, oriented x 3, clear to auscultation bilaterally and regular rate & rhythm Airway Mallampati: Class II Dentition: full CV/HEM Hypertension GI Gastroesophageal Reflux Disease Anesthetic Plan ASA status: 2 Anesthesia: General and Regional (specify below) Risk of > 500 ml blood loss (7ml/kg in children): No Medications/Allergies Home Medications ?Medication ?Instructions ?Recorded ?Confirmed ?Last Taken ?Type hydrocodone 5 mg-acetaminophen 325 1 tab PO Q6H PRN pain #14 tabs 02/16/25 03/01/25 03/01/25 Rx mg tablet TKO, left #1 ea 02/21/25 02/21/25 Unknown Rx pantoprazole 40 mg tablet,delayed 40 mg PO DAILY 02/28/25 03/01/25 03/01/25 History release Allergies Allergy/AdvReac Type Severity Reaction Status Date / Time No Known Allergies Allergy Verified 03/01/25 10:48 Current Medications Generic Name Dose Route Start Last Admin Trade Name Freq PRN Reason Stop Dose Admin Sodium Chloride 1,000 mls @ 30 mls/hr 03/01/25 10:30 03/01/25 10:58 Sodium Chloride 0.9% IV 03/02/25 10:29 30 mls/hr .Q24H ALIX Administration PFSH Anesthesia Social History Smoking and tobacco/nicotine status: current every day tobacco/nicotine user Anesthesia Procedures Nerve Block Nerve Block 1: Main Anesthesia: general anesthesia Time Out Performed: Yes Consent: requested by attending/covering physician, from patient, from other, risks and benefits reviewed and patient agrees to proceed Nerve block location: axillary (L) Anesthesia monitors applied: pulse oximetry, EKG, BP cuff and oxygen Nerve block position: supine Anesthetic Used: ropivicaine 0.5% (25 ml) and with decadron (4 mg) Ultrasound used to: recognize landmarks Nerve Stimulator Used?: No Interscalene/Femoral BLK: 2 stimuplex 22 g needle used for position and inplane approach and visualize local anesthetic spread Injection: neg aspiration of heme Patient Tolerated Procedure: well Complications: none
[2025-03-01] MEDS: ceFAZolin 2,000 mg SDV 2000 MG IVP (11:33)
--- NOTE | 2025-03-01 12:10 | PC.NURSE ---
Crystal to be notified, this is ride. [phone]
--- NOTE | 2025-03-01 12:58 | PM.OP ---
Operative Report Date of procedure: March 01, 2025 Pre-op diagnosis: Left ulnar fracture Post-op diagnosis: same Procedure done: Open reduction internal fixation of left ulna fracture Surgeon: Ethan Ulloa DO Estimated blood loss (mL): 5 Procedure: Open reduction internal fixation of left ulna fracture Patient is brought to the operative suite after undergoing anesthesia was placed in the supine position. Allergies impingement well-padded. Patient was prepped draped in sterile fashion. Skin incision made over the ulna interval between the FCU and ECU were identified. Fracture is identified. Fracture severely comminuted. 8 distal ulna plate was used 3 screws were placed proximal to fracture 2 screws were placed distal of the spanning combination was spanned. A cerclage suture was placed to help hold the comminuted fragments together and DBX was used because likely be difficult fracture to heal. Wound was then closed in layered fashion with Vicryl and Monocryl suture. Sterile dressings were applied patient was placed in ulnar gutter splint and transferred to the PACU in stable condition.
--- NOTE | 2025-03-01 13:03 | XR_ITS ---
WS: [id number] Exam: XR wrist LT 2V [id number] Date/Time of Exam: 03/01/2025 1:03 PM Reason For Exam: Open reduction internal fixation of left ulna fracture DLP: Comparison 02/21/2025. AP and lateral intraoperative C-arm images of the LEFT wrist are presented. Images depict plate and screw fixation of the comminuted fracture of the distal metadiaphysis of the ulna. Alignment appears satisfactory for healing. There appear to be image artifacts present in the central [id number].
--- NOTE | 2025-03-01 13:20 | PC.NURSE ---
1316 - anesthesia at side due to pts blood pressure - orders rec'd - instructed per nursing staff to follow up with PCP
[2025-03-01] MEDS: hyDRALAzine 20 mg/mL INJ 1 mL (13:30)
== END 2025-03-01 14:40 | disposition home or self-care (01) ==
PROVIDERS: Anesthesiology; Visit Provider Orthopaedic Surgery
PROC: (CPT 25545; principal; 2025-03-01 11:20)
DX: S52.202A Unspecified fracture of shaft of left ulna, initial encounter for closed fracture (principal); W14.XXXA Fall from tree, initial encounter; I10 Essential (primary) hypertension; K21.9 Gastro-esophageal reflux disease without esophagitis; Z79.891 Long term (current) use of opiate analgesic; F17.200 Nicotine dependence, unspecified, uncomplicated
CPT/HCPCS: 25545; 73100; 76000; 80306; C1713; C1734; J0360; J0690; J1100; J1885; J2250; J2405; J2704; J2795; J3010; J3490; J7030; J9999

== ENCOUNTER → 2025-03-21 14:11 | Outpatient (BNVA) | payer MEDICAID, SELFPAY | PROVIDERS: Visit Provider Orthopaedic Surgery | DX: Z98.890 Other specified postprocedural states (principal); Z48.89 Encounter for other specified surgical aftercare | CPT/HCPCS: 73090 ==